=== PATIENT | female | born 1995 | race African-American/Black ===

== ENCOUNTER 2017-11-03 21:59 | Emergency (ER) | payer OTHER ==
[2017-11-03] MEDS ORDERED: KETOROLAC 30 MG/ML INJ ONE (23:05)
--- NOTE | 2017-11-03 23:55 | ER ---
Nurse's Notes [facility] Name: Donnell Marie Age: 22 yrs Sex: Female : 1995 Arrival Date: 11/03/2017 Time: 22:01 Bed 17 Private MD: Diagnosis: Other chest pain-Right Upper;Right Upper Back Pain Presentation: 11/03 22:09 Presenting complaint: Patient states: R shoulder pain that radiates to her chest x 3 aa1 days. Describes pain as tightness. Denies injury. Transition of care: patient was not received from another setting of care. Onset of symptoms was November 01, 2017. Risk Assessment: Do you want to hurt yourself or someone else? Patient reports no desire to harm self or others. Initial Sepsis Screen: Does the patient meet any 2 criteria? No. Patient's initial sepsis screen is negative. Does the patient have a suspected source of infection? No. Patient's initial sepsis screen is negative. Care prior to arrival: None. 22:09 Method Of Arrival: Ambulatory aa1 22:09 Acuity: ENRIQUETA 3 aa1 Triage Assessment: 22:11 General: Appears in no apparent distress. comfortable, Behavior is calm, cooperative, aa1 appropriate for age. STAND UP COMEDIAN: 22:11 LMP N/A - Depo-provera aa1 Historical: - Allergies: 22:11 No Known Allergies; aa1 - Home Meds: 22:11 None [Active]; aa1 - PMHx: 22:11 None; aa1 - PSHx: 22:11 None; aa1 - Immunization history:: Adult Immunizations up to date. - Social history:: Smoking status: Patient/guardian denies using tobacco. - Ebola Screening: : No symptoms or risks identified at this time. Screenin:00 Abuse screen: Denies threats or abuse. Nutritional screening: No deficits noted. jd3 Tuberculosis screening: No symptoms or risk factors identified. Fall Risk Gait- Normal/Bed Rest/Wheelchair (0 pts) Mental Status- Oriented to own ability (0 pts). Total Virk Fall Scale indicates No Risk (0-24 pts). Assessment: 22:58 General: Appears in no apparent distress. uncomfortable, Behavior is calm, cooperative, jd3 appropriate for age. Pain: Complains of pain in right scapular area and anterior aspect of right upper chest Pain does not radiate. Quality of pain is described as aching, Pain began suddenly, Is continuous. Neuro: Level of Consciousness is awake, alert, obeys commands, Oriented to person, place, time, situation. Cardiovascular: Heart tones S1 S2 present Capillary refill < 3 seconds Patient's skin is warm and dry. Respiratory: Airway is patent Respiratory effort is even, unlabored, Respiratory pattern is regular, symmetrical, Breath sounds are clear bilaterally. GI: Abdomen is round Bowel sounds present X 4 quads. Abd is soft and non tender X 4 quads. Patient currently denies nausea, vomiting. : No signs and/or symptoms were reported regarding the genitourinary system. EENT: No signs and/or symptoms were reported regarding the EENT system. Derm: Skin is intact, Skin is dry, Skin is normal, Skin temperature is warm. Musculoskeletal: Circulation, motion, and sensation intact. Range of motion: intact in all extremities. 11/04 00:18 Reassessment: Patient appears in no apparent distress at this time. Patient and/or jd3 family updated on plan of care and expected duration. Pain level reassessed. Patient is alert, oriented x 3, equal unlabored respirations, skin warm/dry/pink. pt reported understanding of discharge instructions, even and steady gait upon discharge. Vital Signs: 11/03 22:11 BP 112 / 77; Pulse 85; Resp 18; Temp 97.3; Pulse Ox 100% on R/A; Weight 86.18 kg (R); aa1 Pain 9/10; ED Course: 22:01 Patient arrived in ED. am2 22:11 Triage completed. aa1 22:11 Arm band placed on right wrist. Patient placed in an exam room, on a stretcher. aa1 22:33 Martín Grissom PA is PHCP. cp 22:33 Christ Ledesma MD is Attending Physician. cp 22:38 Michael Gross RN is Primary Nurse. jd3 23:00 Patient has correct armband on for positive identification. Bed in low position. Call j light in reach. Side rails up X 1. Adult w/ patient. air sampling and monitoring on. Pulse ox on. NIBP on. 23:00 Patient maintains SpO2 saturation greater than 95% on room air. jd3 23:16 Patient moved to radiology via wheelchair. kw 23:16 X-ray completed. Patient tolerated procedure well. kw 23:16 Patient moved back from radiology. kw 23:49 XRAY Chest Pa And Lat (2 Views) In Process Unspecified. EDMS 11/04 00:17 No provider procedures requiring assistance completed. Patient did not have IV access jd3 during this emergency room visit. Administered Medications: 11/03 23:08 Drug: TORadol 60 mg Route: IM; Site: left deltoid; jd3 23:51 Follow up: Response: No adverse reaction; Pain is decreased jd3 Outcome: 23:54 Discharge ordered by MD. [place] 11/04 00:17 Discharged to home ambulatory, with family. jd3 Condition: stable Discharge instructions given to patient, family, Instructed on discharge instructions, follow up and referral plans. medication usage, Demonstrated understanding of instructions, follow-up care, medications, Prescriptions given X 2. 00:19 Patient left the ED. jd3 Signatures: Dispatcher [employer] EDMS Jacinta Jean RN RN aa1 Coleen Sheehan Corey, PA PA Molly Rutherford am2 Michael Gross RN RN jd3
--- NOTE | 2017-11-03 23:55 | EDPHYS ---
Physician Documentation [facility] Name: Donnell Marie Age: 22 yrs Sex: Female : 1995 Arrival Date: 11/03/2017 Time: 22:01 Bed 17 Private MD: ED Physician Christ Ledesma HPI: 11/03 23:00 This 22 yrs old Black Female presents to ER via Ambulatory with complaints of Chest cp Pressure, Shoulder Pain. 23:00 The patient or guardian reports chest pain that is located primarily in the anterior cp chest wall, right upper chest. 23:00 The chest pain is described as a pressure. cp 23:00 The pain does not radiate. Duration: The patient or guardian reports a single episode, cp that is still ongoing. 23:00 Modifying factors: the symptoms are aggravated by movement. cp BOTTOM CAGER: 22:11 LMP N/A - Depo-provera aa1 Historical: - Allergies: 22:11 No Known Allergies; aa1 - Home Meds: 22:11 None [Active]; aa1 - PMHx: 22:11 None; aa1 - PSHx: 22:11 None; aa1 - Immunization history:: Adult Immunizations up to date. - Social history:: Smoking status: Patient/guardian denies using tobacco. - Ebola Screening: : No symptoms or risks identified at this time. ROS: 23:05 Eyes: Negative for injury, pain, redness, and discharge. cp 23:05 Constitutional: Negative for body aches, chills, fever, poor PO intake. 23:05 ENT: Negative for drainage from ear(s), ear pain, sore throat, difficulty swallowing, difficulty handling secretions. 23:05 Cardiovascular: Positive for chest pain, of the right upper chest, Negative for edema, palpitations. 23:05 Respiratory: Negative for cough, dyspnea on exertion, pleurisy, shortness of breath, wheezing. 23:05 Abdomen/GI: Negative for abdominal pain, vomiting, diarrhea, constipation, black/tarry stool, rectal bleeding. 23:05 Back: Positive for pain at rest, of the right trapezius and right scapular area, Negative for injury or acute deformity. 23:05 : Negative for urinary symptoms, flank pain. 23:05 MS/extremity: Negative for injury or acute deformity, decreased range of motion, paresthesias, right shoulder. 23:05 Skin: Negative for cellulitis, rash. 23:05 Neuro: Negative for altered mental status, dizziness, headache, syncope, near syncope, weakness. 23:05 All other systems are negative. Exam: 23:12 Head/Face: Normocephalic, atraumatic. cp 23:12 Constitutional: The patient appears in no acute distress, alert, awake, non-diaphoretic, non-toxic, well developed, well nourished. 23:12 Eyes: Periorbital structures: appear normal, Conjunctiva: normal, no exudate, no injection, Sclera: no appreciated abnormality, Lids and lashes: appear normal, bilaterally. 23:12 ENT: External ear(s): are unremarkable, Nose: is normal, Mouth: Lips: moist, Oral mucosa: pink and intact, moist, Posterior pharynx: is normal, airway is patent, no erythema, no exudate, Voice: is normal. 23:12 Neck: External neck: is normal, ROM/movement: is normal, is supple, without pain, no range of motions limitations, no meningismus, no nuchal rigidity. 23:12 Chest/axilla: Inspection: normal, Palpation: crepitus, is not appreciated, tenderness, that is mild, of the right clavicle and anterior aspect of right upper chest, that partially reproduces the patient's complaints. 23:12 Cardiovascular: Rate: normal, Rhythm: regular, Pulses: Pulses are 2+ in right radial artery and left radial artery. Heart sounds: murmur, not appreciated, Edema: is not appreciated, JVD: is not appreciated. 23:12 Respiratory: the patient does not display signs of respiratory distress, Respirations: normal, no use of accessory muscles, no retractions, no splinting, no tachypnea, labored breathing, is not present, Breath sounds: are clear throughout, no decreased breath sounds, no stridor, no wheezing. 23:12 Abdomen/GI: Inspection: abdomen appears normal, Palpation: abdomen is soft and non-tender, in all quadrants, rebound tenderness, is not appreciated, voluntary guarding, is not appreciated, involuntary guarding, is not appreciated. 23:12 Back: pain, that is mild, of the right trapezius and right scapular area, ROM is normal, muscle spasm, is not present. 23:12 Musculoskeletal/extremity: the right arm Sensation intact. Joints: the right shoulder displays no tenderness palpated lateral shoulder, no ROM restriction noted. 23:12 Skin: cellulitis, is not appreciated, no rash present. Vital Signs: 22:11 BP 112 / 77; Pulse 85; Resp 18; Temp 97.3; Pulse Ox 100% on R/A; Weight 86.18 kg (R); aa1 Pain 02/03; MDM: 22:33 Patient medically screened. cp 23:52 Data reviewed: vital signs, nurses notes, EKG, radiologic studies, plain films. cp 23:52 Test interpretation: by ED physician or midlevel provider: ECG, plain radiologic cp studies. 11/03 23:37 Order name: Urine Dipstick--Ancillary (enter results) [facility] 11/03 23:37 Order name: Urine --Ancillary (enter results) [facility] 11/03 22:33 Order name: EKG; Complete Time: 22:34 cp 11/03 22:33 Order name: EKG - Nurse/Tech; Complete Time: 23:51 cp 11/03 22:56 Order name: XRAY Chest Pa And Lat (2 Views) 11/03 22:43 Order name: Urine Dipstick-Ancillary (obtain specimen); Complete Time: 23:38 cp 11/03 22:43 Order name: Urine Test (obtain specimen); Complete Time: 23:38 cp Administered Medications: 23:08 Drug: TORadol 60 mg Route: IM; Site: left deltoid; jd3 23:51 Follow up: Response: No adverse reaction; Pain is decreased jd3 Disposition: 11/04 06:15 Co-signature as Attending Physician, Christ Ledesma MD. pkl Disposition: 11/03/17 23:54 Discharged to Home. Impression: Other chest pain - Right Upper, Right Upper Back Pain. - Condition is Stable. - Discharge Instructions: Back Pain, Adult, Chest Wall Pain. - Prescriptions for Naprosyn 500 mg Oral Tablet - take 1 tablet by ORAL route 2 times per day take with food; 20 tablet. Cyclobenzaprine 10 mg Oral Tablet - take 1 tablet by ORAL route every 8 hours As needed no driving while taking medication; 20 tablet. - Medication Reconciliation Form, Thank You Letter, Antibiotic Education, Prescription Opioid Use form. - Follow up: Private Physician; When: 2 - 3 days; Reason: Recheck today's complaints. - Problem is new. - Symptoms have improved. Signatures: Dispatcher [employer] EDMS Jacinta Jean RN RN aa1 Christ Ledesma MD MD pkl Martín Grissom PA PA cp Davies, Jonathon, RN RN jd3 Corrections: (The following items were deleted from the chart) 00:19 11/03 23:54 11/03/2017 23:54 Discharged to Home. Impression: Other chest pain - Right jd3 Upper; Right Upper Back Pain. Condition is Stable. Forms are Medication Reconciliation Form, Thank You Letter, Antibiotic Education, Prescription Opioid Use. Follow up: Private Physician; When: 2 - 3 days; Reason: Recheck today's complaints. Problem is new. Symptoms have improved. cp
[2017-11-04 02:27] LABS: Urine Blood TRACE (NEG); Urine Glucose NEGATIVE (NEG); Urine Protein NEGATIVE (NEG)
--- NOTE | 2017-11-04 06:29 | EKG ---
Test Date: 2017-11-03 Test Time: 23:22:32 Navigating Officer: SAMANTHA MEASUREMENT RESULTS: Intervals: Rate: 74 IN: 122 QRSD: 76 QT: 374 QTc: 415 [place]: P: 12 IN: 122 QRS: 39 T: 38 INTERPRETIVE STATEMENTS: Normal sinus rhythm Early repolarization Normal ECG Compared to ECG 01/02/2006 13:35:21 Early repolarization now present Electronically Signed On 11-04-17 06:28:12 CDT by Sharif Castro
--- NOTE | 2017-11-04 08:04 | RAD REPORT ---
EXAM DESCRIPTION: Brenda Menezes (2 Views)11/03/2017 11:49 pm CLINICAL HISTORY: Chest pain COMPARISON: none FINDINGS: The lungs appear clear of acute infiltrate. The heart is normal size IMPRESSION: No acute abnormalities displayed
== END 2017-11-04 00:19 | disposition home or self-care (01) ==
LOC: ER 21:59
DX: M54.89 Other dorsalgia (principal)
CPT/HCPCS: 71046; 81003; 81025; 93005; 96372; 99285

== ENCOUNTER 2018-10-09 11:08 | Emergency (ER) | payer OTHER ==
--- OUTSIDE RECORDS SUMMARY | 2018-10-09 11:17 | XMS REPORT ---
:1995 [facility] [address] [place] [address] Care Team Providers Name Role Phone Unavailable Unavailable Unavailable Problems This patient has no known problems. Allergies, Adverse Reactions, Alerts This patient has no known allergies or adverse reactions. Medications This patient has no known medications.
[2018-10-09 11:43] LABS: Urine Specific Gravity 1.015 (1.005-1.030)
[2018-10-09 11:56] LABS: Urine Bacteria 20-50 /HPF (<20); Urine RBC <5 /HPF (NONE SEEN)
[2018-10-09 11:57] LABS: Urine Culture Reflex Order NOT NEEDED
--- NOTE | 2018-10-09 12:02 | EDPHYS ---
Physician Documentation [facility] Name: Donnell Marie Age: 23 yrs Sex: Female : 1995 Arrival Date: 10/09/2018 Time: 11:13 Bed 10 Private MD: ED Physician Sharif Morales HPI: 10/09 11:52 This 23 yrs old Black Female presents to ER via Ambulatory with complaints of Pain All kb Over. 11:54 Pt reports generalized pain all over since Saturday. Saturday was the worst day, better kb yesterday. Denies any pain at this time. Denies any other symptoms including fever, cough, congestion, urinary symptoms, sore throat. . Onset: The symptoms/episode began/occurred 3 day(s) ago. Severity of symptoms: At their worst the symptoms were moderate in the emergency department the symptoms have resolved. The patient has not experienced similar symptoms in the past. The patient has not recently seen a physician. LINUX DEVELOPER: 11:27 0, Full Term 0, Premature 0, 0, Living 0, LMP N/A - Depo-provera iw Historical: - Allergies: 11:27 No Known Allergies; iw - Home Meds: 11:27 Depo-Provera 150 mg/mL IM susp 1 mL every 3 mo [Active]; iw - PMHx: 11: None; iw - PSHx: 11: None; iw - Immunization history:: Adult Immunizations up to date. - Social history:: Smoking status: Patient/guardian denies using tobacco. - Ebola Screening: : Patient negative for fever greater than or equal to 101.5 degrees Fahrenheit, and additional compatible Ebola Virus Disease symptoms Patient denies exposure to infectious person Patient denies travel to an Ebola-affected area in the 21 days before illness onset No symptoms or risks identified at this time. ROS: 11:53 Eyes: Negative for injury, pain, redness, and discharge, ENT: Negative for injury, kb pain, and discharge, Neck: Negative for injury, pain, and swelling, Cardiovascular: Negative for chest pain, palpitations, and edema, Respiratory: Negative for shortness of breath, cough, wheezing, and pleuritic chest pain, Abdomen/GI: Negative for abdominal pain, nausea, vomiting, diarrhea, and constipation, Back: Negative for injury and pain, : Negative for injury, bleeding, discharge, and swelling, MS/Extremity: Negative for injury and deformity, Skin: Negative for injury, rash, and discoloration, Neuro: Negative for headache, weakness, numbness, tingling, and seizure. 11:53 Constitutional: Positive for body aches, Negative for chills, fatigue, fever, malaise, poor PO intake, weight loss. Exam: 11:53 Constitutional: This is a well developed, well nourished patient who is awake, alert, kb and in no acute distress. Head/Face: Normocephalic, atraumatic. ENT: Nares patent. No nasal discharge, no septal abnormalities noted. Tympanic membranes are normal and external auditory canals are clear. Oropharynx with no redness, swelling, or masses, exudates, or evidence of obstruction, uvula midline. Mucous membranes moist. Neck: Trachea midline, no thyromegaly or masses palpated, and no cervical lymphadenopathy. Supple, full range of motion without nuchal rigidity, or vertebral point tenderness. No Meningismus. Chest/axilla: Normal chest wall appearance and motion. Nontender with no deformity. No lesions are appreciated. Cardiovascular: Regular rate and rhythm with a normal S1 and S2. No gallops, murmurs, or rubs. Normal PMI, no JVD. No pulse deficits. Respiratory: Lungs have equal breath sounds bilaterally, clear to auscultation and percussion. No rales, rhonchi or wheezes noted. No increased work of breathing, no retractions or nasal flaring. Abdomen/GI: Soft, non-tender, with normal bowel sounds. No distension or tympany. No guarding or rebound. No evidence of tenderness throughout. Skin: Warm, dry with normal turgor. Normal color with no rashes, no lesions, and no evidence of cellulitis. MS/ Extremity: Pulses equal, no cyanosis. Neurovascular intact. Full, normal range of motion. Neuro: Awake and alert, GCS 15, oriented to person, place, time, and situation. Cranial nerves II-XII grossly intact. Motor strength 5/5 in all extremities. Sensory grossly intact. Cerebellar exam normal. Normal gait. 12:20 ECG was reviewed by the Attending Physician. kb Vital Signs: 11:27 BP 122 / 76; Pulse 78; Resp 18; Temp 98.6; Pulse Ox 98% ; Weight 89.36 kg; Height 5 ft. iw 4 in. (162.56 cm); Pain 0/10; 11:27 Body Mass Index 33.81 (89.36 kg, 162.56 cm) iw MDM: 11:22 Patient medically screened. kb 11:53 Data reviewed: vital signs, nurses notes. Data interpreted: Pulse oximetry: on room air kb is 98 %. Interpretation: normal. Counseling: I had a detailed discussion with the patient and/or guardian regarding: the historical points, exam findings, and any diagnostic results supporting the discharge/admit diagnosis, lab results, the need for outpatient follow up, a family practitioner, to return to the emergency department if symptoms worsen or persist or if there are any questions or concerns that arise at home. 10/09 11:33 Order name: Urine --Ancillary (enter results); Complete Time: 11:48 kb 10/09 11:33 Order name: Urine Microscopic Only; Complete Time: 11:59 kb 10/09 11:34 Order name: Urine Dipstick--Ancillary (enter results) kb 10/09 12:02 Order name: EKG; Complete Time: 12:03 kb 10/09 12:02 Order name: EKG - Nurse/Tech; Complete Time: 12:19 kb EC:20 Rate is 65 beats/min. Rhythm is regular, Normal Sinus Rhythm. QRS [place] is Normal. [place] kb interval is normal at 122 msec. QRS interval is normal at 76 msec. QT interval is normal at 392 msec. Administered Medications: No medications were administered Disposition: 18:24 Co-signature as Attending Physician, Sharif Morales MD. Disposition: 10/09/18 12:00 Discharged to Home. Impression: Urinary tract infection, site not specified. - Condition is Stable. - Discharge Instructions: Urinary Tract Infection, Adult, [id number]. - Prescriptions for Macrobid 100 mg Oral Capsule - take 1 capsule by ORAL route every 12 hours for 5 days; 10 capsule. - Medication Reconciliation Form, Thank You Letter, Antibiotic Education, Prescription Opioid Use form. - Follow up: Emergency Department; When: As needed; Reason: Worsening of condition. Follow up: Private Physician; When: 2 - 3 days; Reason: Recheck today's complaints, Continuance of care, Re-evaluation by your physician. Signatures: Dispatcher [employer] EDKathryn Darnell, E/M ENGINEER-C E/M ENGINEER-Ckb Ana María Ludwig, NIVIA RN Sharif Lennon MD MD gs Corrections: (The following items were deleted from the chart) 12:24 12:00 10/09/2018 12:00 Discharged to Home. Impression: Urinary tract infection, site iw not specified. Condition is Stable. Forms are Medication Reconciliation Form, Thank You Letter, Antibiotic Education, Prescription Opioid Use. Follow up: Emergency Department; When: As needed; Reason: Worsening of condition. Follow up: Private Physician; When: 2 - 3 days; Reason: Recheck today's complaints, Continuance of care, Re-evaluation by your physician. kb
--- NOTE | 2018-10-09 12:02 | ER ---
Nurse's Notes [facility] Name: Donnell Marie Age: 23 yrs Sex: Female : 1995 Arrival Date: 10/09/2018 Time: 11:13 Bed 10 Private MD: Diagnosis: Urinary tract infection, site not specified Presentation: 10/09 11:26 Presenting complaint: Patient states: pain all over since Saturday. Saturday I couldn't iw get out of bed. It was better last night. Currently has no pain. Transition of care: patient was not received from another setting of care. Onset of symptoms was October 06, 2018. Risk Assessment: Do you want to hurt yourself or someone else? Patient reports no desire to harm self or others. Initial Sepsis Screen: Does the patient meet any 2 criteria? No. Patient's initial sepsis screen is negative. Does the patient have a suspected source of infection? No. Patient's initial sepsis screen is negative. Care prior to arrival: None. 11:26 Method Of Arrival: Ambulatory iw 11:26 Acuity: ENRIQUETA 4 iw Triage Assessment: 11:27 General: Appears in no apparent distress. Behavior is calm, cooperative. iw 11:29 Pain: Denies pain. iw NURSE RESEARCHER: 11:27 0, Full Term 0, Premature 0, 0, Living 0, LMP N/A - Depo-provera iw Historical: - Allergies: 11:27 No Known Allergies; iw - Home Meds: 11:27 Depo-Provera 150 mg/mL IM susp 1 mL every 3 mo [Active]; iw - PMHx: 11:27 None; iw - PSHx: 11:27 None; iw - Immunization history:: Adult Immunizations up to date. - Social history:: Smoking status: Patient/guardian denies using tobacco. - Ebola Screening: : Patient negative for fever greater than or equal to 101.5 degrees Fahrenheit, and additional compatible Ebola Virus Disease symptoms Patient denies exposure to infectious person Patient denies travel to an Ebola-affected area in the 21 days before illness onset No symptoms or risks identified at this time. Screenin:23 Abuse screen: Denies threats or abuse. Denies injuries from another. Nutritional iw screening: No deficits noted. Tuberculosis screening: No symptoms or risk factors identified. Fall Risk None identified. Assessment: 12:00 General: Appears in no apparent distress. Behavior is calm, cooperative. Pain:. Neuro: iw Level of Consciousness is awake, alert, obeys commands, Oriented to person, place, time, situation, Moves all extremities. Full function. Cardiovascular: Patient's skin is warm and dry. Respiratory: Respiratory effort is even, unlabored, Respiratory pattern is regular. GI: No signs and/or symptoms were reported involving the gastrointestinal system. Derm: Skin is intact, is healthy with good turgor. Musculoskeletal: Range of motion: intact in all extremities. Vital Signs: 11:27 BP 122 / 76; Pulse 78; Resp 18; Temp 98.6; Pulse Ox 98% ; Weight 89.36 kg; Height 5 ft. iw 4 in. (162.56 cm); Pain 0/10; 11:27 Body Mass Index 33.81 (89.36 kg, 162.56 cm) iw ED Course: 11:13 Patient arrived in ED. mr 11:22 Kathryn Thomas FNP-C is [facility]. kb 11:22 Sharif Morales MD is Attending Physician. kb 11:27 Triage completed. iw 11:29 Arm band placed on left wrist. iw 11:33 Ana María Ludwig, NIVIA is Primary Nurse. iw 12:00 Patient has correct armband on for positive identification. iw 12:11 EKG done, by cryptologic technician technical. reviewed by Kathryn GARCIA. tc 12:23 No provider procedures requiring assistance completed. Patient did not have IV access iw during this emergency room visit. Administered Medications: No medications were administered Outcome: 12:00 Discharge ordered by MD. kb 12:23 Discharged to home ambulatory. iw 12:23 Condition: good 12:23 Discharge instructions given to patient, Instructed on discharge instructions, follow up and referral plans. Demonstrated understanding of instructions, follow-up care. 12:24 Patient left the ED. iw Signatures: Kathryn Thomas FNP-C FNP-[place] mr Ana María Ludwig, RN RN Iris Hurtado, commercial leasing agent EKG Ttc Corrections: (The following items were deleted from the chart) 11:29 11:26 Presenting complaint: Patient states: pain all over since Saturday. Saturday I iw couldn't get out of bed. It was better last night, but this morning started hurting again iw
--- NOTE | 2018-10-09 12:44 | EKG ---
Test Date: 2018-10-09 Test Time: 12:16:05 [place] Examiner: CARLOS MEASUREMENT RESULTS: Intervals: Rate: 65 ND: 122 QRSD: 76 QT: 392 QTc: 407 [place]: P: 24 ND: 122 QRS: 43 T: 50 INTERPRETIVE STATEMENTS: Normal sinus rhythm Early repolarization Normal ECG Compared to ECG 11/03/2017 23:22:32 No significant changes Electronically Signed On 10-09-18 12:43:50 CDT by Franck Boggs
[2018-10-09 13:46] LABS: Urine Blood 1+ (NEG); Urine Glucose NEGATIVE (NEG); Urine Protein NEGATIVE (NEG); Urine Specific Gravity 1.015 (1.005-1.030); Urine pH 5.5 (5.0-7.0)
== END 2018-10-09 12:24 | disposition home or self-care (01) ==
LOC: ER 11:08
DX: N39.0 Urinary tract infection, site not specified (principal)
CPT/HCPCS: 81003; 81015; 81025; 93005; 99283

== ENCOUNTER 2020-12-05 22:33 | Emergency (ER) | payer OTHER ==
--- OUTSIDE RECORDS SUMMARY | 2020-12-05 22:36 | XMS REPORT | Continuity of Care Document ---
:1995 Author Organization [facility] t Address [address] [place] [address] Care Team Providers Name Role Phone Nurse, Women's Health Attending Clinician Unavailable Doctor Unassigned, Name Attending Clinician Unavailable Buzz SANTANA Attending Clinician Problems This patient has no known problems. Allergies, Adverse Reactions, Alerts This patient has no known allergies or adverse reactions. Medications This patient has no known medications. Procedures This patient has no known procedures. Encounters Start End Encounter Admission Attending Care Care Encounter Source Date/Time Date/Time Type Type Clinicians Facility Department ID 2020-09-15 2020-09-15 Nurse Nurse, [facility] [id number] 13:56:24 14:34:04 Visit [facility] [id number] [place] [id number] [place] [phone] [address] 2020-09-15 2020-09-15 Orders Doctor TETO [id number] 00:00:00 00:00:00 Only Unassigned, JOSE D [id number] [place] [facility] [id number] 2020-05-25 2020-05-25 Nurse Nurse, [facility] [id number] 14:03:52 14:18:52 Visit [facility] [id number] [place] [id number] [place] [phone] [address] 2020-02-18 2020-02-18 Office TSERING Gerber [id number] 14:45:48 15:53:03 Visit Nicol Laguerre [id number] [place] [id number] [place] [phone] [facility] [address] [facility] Results This patient has no known results.
[2020-12-06] MEDS ORDERED: ONDANSETRON 4 MG (ODT) TAB ONE (00:35)
--- NOTE | 2020-12-06 01:12 | ER ---
Nurse's Notes [facility] Name: Donnell Marie Age: 25 yrs Sex: Female : 1995 Arrival Date: 12/05/2020 Time: 22:37 Bed External Waiting Private MD: Diagnosis: Presentation: 12/06 00:10 Chief complaint: Patient states: N/V/D since last night, reports abdominal pain. em Coronavirus screen: Client denies travel out of the [place] in the last 14 days. Ebola Screen: Patient negative for fever greater than or equal to 101.5 degrees Fahrenheit, and additional compatible Ebola Virus Disease symptoms Patient denies exposure to infectious person. Patient denies travel to an Ebola-affected area in the 21 days before illness onset. No symptoms or risks identified at this time. Initial Sepsis Screen: Does the patient meet any 2 criteria? HR > 90 bpm. No. Patient's initial sepsis screen is negative. Does the patient have a suspected source of infection? No. Patient's initial sepsis screen is negative. Risk Assessment: Do you want to hurt yourself or someone else? Patient reports no desire to harm self or others. Onset of symptoms was December 06, 2020. 00:10 Method Of Arrival: Ambulatory em 00:10 Acuity: ENRIQUETA 2 em Historical: - Allergies: 00:11 No Known Allergies; em - PMHx: 00:11 None; em - PSHx: 00:11 None; em - Immunization history:: Adult Immunizations up to date. - Social history:: Smoking status: Patient denies any tobacco usage or history of. Vital Signs: 00:10 BP 90 / 58; Pulse 120; Resp 18; Temp 98.4; Pulse Ox 99% on R/A; Weight 96.16 kg; Pain em 310; 00:14 BP 112 / 77; em ED Course: 12/05 22:37 Patient arrived in ED. 12/06 00:11 Triage completed. em 00:11 Arm band placed on. em Administered Medications: No medications were administered Outcome: 01:11 Patient left the ED. em Signatures: Isaias Gates RN RN Lacie Coronel
[2020-12-06 01:58] VITALS: TEMP 98.4; O2SAT 99
[2020-12-06 01:59] VITALS: BP 112/77
== END 2020-12-06 01:11 | disposition left against medical advice (07) ==
LOC: ER 22:33
DX: Z53.21 Procedure and treatment not carried out due to patient leaving prior to being seen by health care provider (principal)
CPT/HCPCS: 99281

== ENCOUNTER 2023-10-02 21:51 | Emergency (ER) | payer OTHER ==
--- OUTSIDE RECORDS SUMMARY | 2023-10-02 21:55 | XMS REPORT | Continuity of Care Document ---
Author Name Unknown Address [address] [place] [address] [facility] Address [address] [place] [address] Care Team Providers Care Jelly Maker Name Role Phone NEYMAR MCCORMACK Primary Care Physician Unavailab MADDY Jordan Attending Clinician MADDY Mathias Attending Clinician RENE Chavarria Attending Clinician Unavailable NEYMAR MCCORMACK Attending Clinician Unavailable Neymar Diaz Attending Clinician [phone] Doctor Unassigned, [place] [facility] Attending Clinician U lien Morris, [facility] Attending Clinician Unavailable ALMA SOLIMAN Attending Clinician Unavailab ALAM Sweeney Attending Clinician Unavailab NICOL Carvalho Attending Clinician Unavailable Nicol Jordan PA-C Attending Clinician [phone] REEMA LEAL Attending Clinician Unavailable Reema Leal MD Attending Clinician [phone] EDGAR SARAVIA Attending Clinician Unavailable Edgar Saravia NP Attending Clinician [phone] Nurse, [facility] Attending Clinician Un available Jasvir PAC, K Joy Attending Clinician SANDRO COTE Attending Clinician Unavail able JUAN MANUEL LAMA Attending Clinician Unavailable Juan Manuel Lama MD Attending Clinician VALERIE MCHUGH Attending Clinician Unavailable FELIPE BLANTON Attending Clinician Unavailable ABBY MONTAGUE Attending Clinician Unavailable Payers Payer Name Policy Type Policy Number Effective Date Expirati on Date Source [facility] DUAL COMP HMO D SNP [id number] 2020 00:00:00 [facility] [place] [id number] 2016 00:00:00 [employer] TOTAL CARE MEDICARE HMO [id number] 2023 00:00:00 [place] [id number] 2016 00:00:00 2019 00:00:00 Problems Condition Name Condition Details Condition Category Status Onset Date Resolution Date Last Treatment Date Treating Clinician Comments Source Nexplanon in place Nexplanon in place Disease Active 4-14 00:00: 00 [facility] Obesity (BMI 30-39.9) Obesity (BMI 30-39.9) Disease Active 8-13 00:00: 00 [facility] History of anemia History of anemia Disease Active 6 00:00: 00 [facility] Atypical squamous cells of undetermin ed significan ce (ASCUS) on Papanicola ou smear of cervix Atypical squamous cells of undetermin ed significan ce (ASCUS) on Papanicola ou smear of cervix Disease Active 1- 00:00: 00 Overview: Formattin g of this note might be different from the original. Repeat cytology in 1 year [facility] Allergies, Adverse Reactions, Alerts Allergy Name Allergy Type Status Severity Reaction(s) Onset Date Inactive Date Treating Clinician Comments Source NO KNOWN ALLERGIE S Drug Class Active [facility] Social History Social Habit Start Date Stop Date Quantity Comments [facility] 2023-04-15 00:00:00 2023-04-15 00:00:00 [facility] Exposure to SARS-CoV-2 (event) 2022-10-13 00:00:00 2022-10-23 09:51:00 Not sure [facility] Alcohol intake 2022-10-23 00:00:00 2022-10-23 00:00:00 0 /d [facility] Tobacco use and exposure 2022-09-12 00:00:00 2022-09-12 00:00:00 Smokeless tobacco non-user [facility] Sex Assigned At 1995 00:00:00 1995 00:00:00 [facility] Smoking Status Start Date Stop Date Source Never smoked tobacco [facility] Medications Ordered Medication Name Filled Medication Name Start Date Stop Date Current Medication? Ordering Clinician Indication Dosage Frequency Signature (SIG) Comments Components Source clotrimazol e 1 % topical cream 2022-05 00:00: 00 04-15 00:00 :00 No [id number] Apply to area(s) at bedtime. [facility] ergocalcife rol, vitamin d2, 1,250 mcg (50,000 unit) capsule 09-15 00:00: 00 Yes [id number] Take 1 capsule by mouth weekly. [facility] etonogestre L (NEXPLANON) implant 68 mg 09-07 19:45: 00 09-07 18:40 :00 No [id number] 68mg [facility] nystatin-tr iamcinolone cream 02-20 00:00: 00 09-14 00:00 :00 No [id number] Apply to area(s) 2 (two) times daily. [facility] polyethylen e glycol 3350 17 gram/dose powder 02-20 00:00: 00 09-14 00:00 :00 No [id number] 17g Take 17 g by mouth daily. [facility] ondansetron (ZOFRAN ODT) 4 mg disintegrat ing tablet 7-13 00:00: 00 09-14 00:00 :00 No [id number] 4mg Take 1 tablet by mouth every 8 (eight) hours as needed for Nausea and Vomiting (N/V). [facility] Immunizations Ordered Immunization Name Filled Immunization Name Date Status Comments Source Influenza Virus Vaccine Quad IM, Preserv and ABX Free 6 MO-64 YRS 2022-09-12 00:00:00 Completed [facility] Influenza Virus Vaccine Quad IM, Preserv and ABX Free 6 MO-64 YRS 2022-09-12 00:00:00 Completed [facility] Influenza Virus Vaccine Quad IM, Preserv and ABX Free 6 MO-64 YRS 2022-09-12 00:00:00 Completed [facility] Influenza Virus Vaccine Quad IM, Preserv and ABX Free 6 MO-64 YRS 2022-09-12 00:00:00 Completed [facility] Influenza Virus Vaccine Quad IM, Preserv and ABX Free 6 MO-64 YRS 2022-09-12 00:00:00 Completed [facility] Influenza Virus Vaccine Quad IM, Preserv and ABX Free 6 MO-64 YRS 2022-09-12 00:00:00 Completed [facility] Influenza Virus Vaccine Quad IM, Preserv and ABX Free 6 MO-64 YRS 2022-09-12 00:00:00 Completed [facility] Influenza Virus Vaccine Quad IM, Preserv and ABX Free 6 MO-64 YRS 2022-09-12 00:00:00 Completed [facility] Influenza Virus Vaccine Quad IM, Preserv and ABX Free 6 MO-64 YRS 2022-09-12 00:00:00 Completed [facility] Influenza Virus Vaccine Quad IM, Preserv and ABX Free 6 MO-64 YRS 2022-09-12 00:00:00 Completed [facility] Influenza Virus Vaccine Quad IM, Preserv and ABX Free 6 MO-64 YRS 2022-09-12 00:00:00 Completed [facility] Influenza Virus Vaccine Quad IM, Preserv and ABX Free 6 MO-64 YRS 2021-03-08 00:00:00 Completed [facility] Influenza Virus Vaccine Quad IM, Preserv and ABX Free 6 MO-64 YRS 2021-03-08 00:00:00 Completed [facility] Influenza Virus Vaccine Quad IM, Preserv and ABX Free 6 MO-64 YRS 2021-03-08 00:00:00 Completed [facility] Influenza Virus Vaccine Quad IM, Preserv and ABX Free 6 MO-64 YRS 2021-03-08 00:00:00 Completed [facility] Influenza Virus Vaccine Quad IM, Preserv and ABX Free 6 MO-64 YRS 2021-03-08 00:00:00 Completed [facility] Influenza Virus Vaccine Quad IM, Preserv and ABX Free 6 MO-64 YRS 2021-03-08 00:00:00 Completed [facility] Influenza Virus Vaccine Quad IM, Preserv and ABX Free 6 MO-64 YRS 2021-03-08 00:00:00 Completed [facility] Influenza Virus Vaccine Quad IM, Preserv and ABX Free 6 MO-64 YRS 2021-03-08 00:00:00 Completed [facility] Influenza Virus Vaccine Quad IM, Preserv and ABX Free 6 MO-64 YRS 2021-03-08 00:00:00 Completed [facility] Influenza Virus Vaccine Quad IM, Preserv and ABX Free 6 MO-64 YRS 2021-03-08 00:00:00 Completed [facility] Influenza Virus Vaccine Quad IM, Preserv and ABX Free 6 MO-64 YRS 2021-03-08 00:00:00 Completed [facility] Influenza Virus Vaccine Quad IM, Preserv and ABX Free 6 MO-64 YRS 2021-03-08 00:00:00 Completed [facility] Influenza Virus Vaccine Quad IM, Preserv and ABX Free 6 MO-64 YRS 2021-03-08 00:00:00 Completed [facility] Influenza Virus Vaccine Quad IM, Preserv and ABX Free 6 MO-64 YRS 2021-03-08 00:00:00 Completed [facility] Influenza Virus Vaccine Quad IM, Preserv and ABX Free 6 MO-64 YRS 2021-03-08 00:00:00 Completed [facility] SARS-COV-2 COVID-19 PFIZER VACCINE 2020-10-05 00:00:00 Completed [facility] SARS-COV-2 COVID-19 PFIZER VACCINE 2020-10-05 00:00:00 Completed [facility] SARS-COV-2 COVID-19 PFIZER VACCINE 2020-10-05 00:00:00 Completed [facility] SARS-COV-2 COVID-19 PFIZER VACCINE 2020-10-05 00:00:00 Completed [facility] SARS-COV-2 COVID-19 PFIZER VACCINE 2020-10-05 00:00:00 Completed [facility] SARS-COV-2 COVID-19 PFIZER VACCINE 2020-10-05 00:00:00 Completed [facility] SARS-COV-2 COVID-19 PFIZER VACCINE 2020-10-05 00:00:00 Completed [facility] SARS-COV-2 COVID-19 PFIZER VACCINE 2020-10-05 00:00:00 Completed [facility] SARS-COV-2 COVID-19 PFIZER VACCINE 2020-10-05 00:00:00 Completed [facility] SARS-COV-2 COVID-19 PFIZER VACCINE 2020-10-05 00:00:00 Completed [facility] SARS-COV-2 COVID-19 PFIZER VACCINE 2020-10-05 00:00:00 Completed [facility] SARS-COV-2 COVID-19 PFIZER VACCINE 2020-10-05 00:00:00 Completed [facility] SARS-COV-2 COVID-19 PFIZER VACCINE 2020-10-05 00:00:00 Completed [facility] SARS-COV-2 COVID-19 PFIZER VACCINE 2020-10-05 00:00:00 Completed [facility] SARS-COV-2 COVID-19 PFIZER VACCINE 2020-10-05 00:00:00 Completed [facility] SARS-COV-2 COVID-19 PFIZER VACCINE 2020-09-15 00:00:00 Completed [facility] SARS-COV-2 COVID-19 PFIZER VACCINE 2020-09-15 00:00:00 Completed [facility] SARS-COV-2 COVID-19 PFIZER VACCINE 2020-09-15 00:00:00 Completed [facility] SARS-COV-2 COVID-19 PFIZER VACCINE 2020-09-15 00:00:00 Completed [facility] SARS-COV-2 COVID-19 PFIZER VACCINE 2020-09-15 00:00:00 Completed [facility] SARS-COV-2 COVID-19 PFIZER VACCINE 2020-09-15 00:00:00 Completed [facility] SARS-COV-2 COVID-19 PFIZER VACCINE 2020-09-15 00:00:00 Completed [facility] SARS-COV-2 COVID-19 PFIZER VACCINE 2020-09-15 00:00:00 Completed [facility] SARS-COV-2 COVID-19 PFIZER VACCINE 2020-09-15 00:00:00 Completed [facility] SARS-COV-2 COVID-19 PFIZER VACCINE 2020-09-15 00:00:00 Completed [facility] SARS-COV-2 COVID-19 PFIZER VACCINE 2020-09-15 00:00:00 Completed [facility] SARS-COV-2 COVID-19 PFIZER VACCINE 2020-09-15 00:00:00 Completed [facility] SARS-COV-2 COVID-19 PFIZER VACCINE 2020-09-15 00:00:00 Completed [facility] SARS-COV-2 COVID-19 PFIZER VACCINE 2020-09-15 00:00:00 Completed [facility] SARS-COV-2 COVID-19 PFIZER VACCINE 2020-09-15 00:00:00 Completed [facility] Influenza Virus Vaccine Quad .5 mL IM 6+ MO 2020-02-18 00:00:00 Completed [facility] Influenza Virus Vaccine Quad .5 mL IM 6+ MO 2020-02-18 00:00:00 Completed [facility] Influenza Virus Vaccine Quad .5 mL IM 6+ MO 2020-02-18 00:00:00 Completed [facility] Influenza Virus Vaccine Quad .5 mL IM 6+ MO 2020-02-18 00:00:00 Completed [facility] Influenza Virus Vaccine Quad .5 mL IM 6+ MO 2020-02-18 00:00:00 Completed [facility] Influenza Virus Vaccine Quad .5 mL IM 6+ MO 2020-02-18 00:00:00 Completed [facility] Influenza Virus Vaccine Quad .5 mL IM 6+ MO 2020-02-18 00:00:00 Completed [facility] Influenza Virus Vaccine Quad .5 mL IM 6+ MO 2020-02-18 00:00:00 Completed [facility] Influenza Virus Vaccine Quad .5 mL IM 6+ MO 2020-02-18 00:00:00 Completed [facility] Influenza Virus Vaccine Quad .5 mL IM 6+ MO 2020-02-18 00:00:00 Completed [facility] Influenza Virus Vaccine Quad .5 mL IM 6+ MO 2020-02-18 00:00:00 Completed [facility] Influenza Virus Vaccine Quad .5 mL IM 6+ MO 2020-02-18 00:00:00 Completed [facility] Influenza Virus Vaccine Quad .5 mL IM 6+ MO 2020-02-18 00:00:00 Completed [facility] Influenza Virus Vaccine Quad .5 mL IM 6+ MO 2020-02-18 00:00:00 Completed [facility] Influenza Virus Vaccine Quad .5 mL IM 6+ MO 2020-02-18 00:00:00 Completed [facility] Influenza Virus Vaccine Quad IM 3+ YRS 2017-04-17 00:00:00 Completed [facility] Influenza Virus Vaccine Quad IM 3+ YRS 2017-04-17 00:00:00 Completed [facility] Influenza Virus Vaccine Quad IM 3+ YRS 2017-04-17 00:00:00 Completed [facility] Influenza Virus Vaccine Quad IM 3+ YRS 2017-04-17 00:00:00 Completed [facility] Influenza Virus Vaccine Quad IM 3+ YRS 2017-04-17 00:00:00 Completed [facility] Influenza Virus Vaccine Quad IM 3+ YRS 2017-04-17 00:00:00 Completed [facility] Influenza Virus Vaccine Quad IM 3+ YRS 2017-04-17 00:00:00 Completed [facility] Influenza Virus Vaccine Quad IM 3+ YRS 2017-04-17 00:00:00 Completed [facility] Influenza Virus Vaccine Quad IM 3+ YRS 2017-04-17 00:00:00 Completed [facility] Influenza Virus Vaccine Quad IM 3+ YRS 2017-04-17 00:00:00 Completed [facility] Influenza Virus Vaccine Quad IM 3+ YRS 2017-04-17 00:00:00 Completed [facility] Influenza Virus Vaccine Quad IM 3+ YRS 2017-04-17 00:00:00 Completed [facility] Influenza Virus Vaccine Quad IM 3+ YRS 2017-04-17 00:00:00 Completed [facility] Influenza Virus Vaccine Quad IM 3+ YRS 2017-04-17 00:00:00 Completed [facility] Influenza Virus Vaccine Quad IM 3+ YRS 2017-04-17 00:00:00 Completed [facility] TDAP 2016-08-31 00:00:00 Completed [facility] TDAP 2016-08-31 00:00:00 Completed [facility] TDAP 2016-08-31 00:00:00 Completed [facility] TDAP 2016-08-31 00:00:00 Completed [facility] TDAP 2016-08-31 00:00:00 Completed [facility] TDAP 2016-08-31 00:00:00 Completed [facility] TDAP 2016-08-31 00:00:00 Completed [facility] TDAP 2016-08-31 00:00:00 Completed [facility] TDAP 2016-08-31 00:00:00 Completed [facility] TDAP 2016-08-31 00:00:00 Completed [facility] TDAP 2016-08-31 00:00:00 Completed [facility] TDAP 2016-08-31 00:00:00 Completed [facility] TDAP 2016-08-31 00:00:00 Completed [facility] TDAP 2016-08-31 00:00:00 Completed [facility] TDAP 2016-08-31 00:00:00 Completed [facility] Influenza Virus Vaccine Quad IM 3+ YRS 2016-03-29 00:00:00 Completed [facility] Influenza Virus Vaccine Quad IM 3+ YRS 2016-03-29 00:00:00 Completed [facility] Influenza Virus Vaccine Quad IM 3+ YRS 2016-03-29 00:00:00 Completed [facility] Influenza Virus Vaccine Quad IM 3+ 2016-03-29 00:00:00 Completed [facility] Influenza Virus Vaccine Quad IM 3+ YRS 2016-03-29 00:00:00 Completed [facility] Influenza Virus Vaccine Quad IM 3+ YRS 2016-03-29 00:00:00 Completed [facility] Influenza Virus Vaccine Quad IM 3+ YRS 2016-03-29 00:00:00 Completed [facility] Influenza Virus Vaccine Quad IM 3+ YRS 2016-03-29 00:00:00 Completed [facility] Influenza Virus Vaccine Quad IM 3+ YRS 2016-03-29 00:00:00 Completed [facility] Influenza Virus Vaccine Quad IM 3+ YRS 2016-03-29 00:00:00 Completed [facility] Influenza Virus Vaccine Quad IM 3+ YRS 2016-03-29 00:00:00 Completed [facility] Influenza Virus Vaccine Quad IM 3+ YRS 2016-03-29 00:00:00 Completed [facility] Influenza Virus Vaccine Quad IM 3+ YRS 2016-03-29 00:00:00 Completed [facility] Influenza Virus Vaccine Quad IM 3+ YRS 2016-03-29 00:00:00 Completed [facility] Influenza Virus Vaccine Quad IM 3+ YRS 2016-03-29 00:00:00 Completed [facility] HEPATITIS A 2005-12-13 00:00:00 Completed [facility] Meningococcal Vaccine 2005-12-13 00:00:00 Completed [facility] TDAP 2005-12-13 00:00:00 Completed [facility] HEPATITIS A 2005-12-13 00:00:00 Completed [facility] Meningococcal Vaccine 2005-12-13 00:00:00 Completed [facility] TDAP 2005-12-13 00:00:00 Completed [facility] HEPATITIS A 2005-12-13 00:00:00 Completed [facility] Meningococcal Vaccine 2005-12-13 00:00:00 Completed [facility] TDAP 2005-12-13 00:00:00 Completed [facility] Influenza Virus Vaccine Quad IM 3+ YRS Unknown Completed [facility] TDAP Unknown Completed [facility] Influenza Virus Vaccine Quad IM 3+ YRS Unknown Completed [facility] Influenza Virus Vaccine Quad .5 mL IM 6+ MO (FLUZONE/FLULAVAL/F LUARIX) Unknown Completed [facility] SARS-COV-2 COVID-19 PFIZER VACCINE Unknown Completed [facility] SARS-COV-2 COVID-19 PFIZER VACCINE Unknown Completed [facility] Influenza Virus Vaccine Quad IM, Preserv and ABX Free 6 MO-64 YRS (FLUCELVAX) Unknown Completed [facility] Influenza Virus Vaccine Quad IM, Preserv and ABX Free 6 MO-64 YRS (FLUCELVAX) Unknown Completed [facility] SARS-COV-2 COVID 19 DAVID SUCROSE VACCINE 12+, [id number], 0.3 ML (30 MCG), IM PFIZER (CRAFT TOP) Unknown Completed [facility] Influenza Virus Vaccine Quad IM 3+ YRS Unknown Completed [facility] TDAP Unknown Completed [facility] Influenza Virus Vaccine Quad IM 3+ YRS Unknown Completed [facility] Influenza Virus Vaccine Quad .5 mL IM 6+ MO (FLUZONE/FLULAVAL/F LUARIX) Unknown Completed [facility] SARS-COV-2 COVID-19 PFIZER VACCINE Unknown Completed [facility] SARS-COV-2 COVID-19 PFIZER VACCINE Unknown Completed [facility] Influenza Virus Vaccine Quad IM, Preserv and ABX Free 6 MO-64 YRS (FLUCELVAX) Unknown Completed [facility] Influenza Virus Vaccine Quad IM, Preserv and ABX Free 6 MO-64 YRS (FLUCELVAX) Unknown Completed [facility] SARS-COV-2 COVID 19 DAVID SUCROSE VACCINE 12+, [id number], 0.3 ML (30 MCG), IM PFIZER (CRAFT TOP) Unknown Completed [facility] Influenza Virus Vaccine Quad IM 3+ YRS Unknown Completed [facility] TDAP Unknown Completed [facility] Influenza Virus Vaccine Quad IM 3+ YRS Unknown Completed [facility] Influenza Virus Vaccine Quad .5 mL IM 6+ MO (FLUZONE/FLULAVAL/F LUARIX) Unknown Completed [facility] SARS-COV-2 COVID-19 PFIZER VACCINE Unknown Completed [facility] SARS-COV-2 COVID-19 PFIZER VACCINE Unknown Completed [facility] Influenza Virus Vaccine Quad IM, Preserv and ABX Free 6 MO-64 YRS (FLUCELVAX) Unknown Completed [facility] Influenza Virus Vaccine Quad IM, Preserv and ABX Free 6 MO-64 YRS (FLUCELVAX) Unknown Completed [facility] Influenza Virus Vaccine Quad IM 3+ YRS Unknown Completed [facility] TDAP Unknown Completed [facility] Influenza Virus Vaccine Quad IM 3+ YRS Unknown Completed [facility] Influenza Virus Vaccine Quad .5 mL IM 6+ MO (FLUZONE/FLULAVAL/F LUARIX) Unknown Completed [facility] SARS-COV-2 COVID-19 PFIZER VACCINE Unknown Completed [facility] SARS-COV-2 COVID-19 PFIZER VACCINE Unknown Completed [facility] Influenza Virus Vaccine Quad IM, Preserv and ABX Free 6 MO-64 YRS (FLUCELVAX) Unknown Completed [facility] Influenza Virus Vaccine Quad IM, Preserv and ABX Free 6 MO-64 YRS (FLUCELVAX) Unknown Completed [facility] Influenza Virus Vaccine Quad IM 3+ YRS Unknown Completed [facility] TDAP Unknown Completed [facility] Influenza Virus Vaccine Quad IM 3+ YRS Unknown Completed [facility] Influenza Virus Vaccine Quad .5 mL IM 6+ MO (FLUZONE/FLULAVAL/F LUARIX) Unknown Completed [facility] SARS-COV-2 COVID-19 PFIZER VACCINE Unknown Completed [facility] SARS-COV-2 COVID-19 PFIZER VACCINE Unknown Completed [facility] Influenza Virus Vaccine Quad IM, Preserv and ABX Free 6 MO-64 YRS (FLUCELVAX) Unknown Completed [facility] Influenza Virus Vaccine Quad IM, Preserv and ABX Free 6 MO-64 YRS (FLUCELVAX) Unknown Completed [facility] Influenza Virus Vaccine Quad IM 3+ YRS Unknown Completed [facility] TDAP Unknown Completed [facility] Influenza Virus Vaccine Quad IM 3+ YRS Unknown Completed [facility] Influenza Virus Vaccine Quad .5 mL IM 6+ MO (FLUZONE/FLULAVAL/F LUARIX) Unknown Completed [facility] SARS-COV-2 COVID-19 PFIZER VACCINE Unknown Completed [facility] SARS-COV-2 COVID-19 PFIZER VACCINE Unknown Completed [facility] Influenza Virus Vaccine Quad IM, Preserv and ABX Free 6 MO-64 YRS (FLUCELVAX) Unknown Completed [facility] Influenza Virus Vaccine Quad IM, Preserv and ABX Free 6 MO-64 YRS (FLUCELVAX) Unknown Completed [facility] Vital Signs Vital Name Observation Time Observation Value Comments S ouredith Systolic blood pressure 2023-04-15 17:20:00 106 mm[Hg] [facility] Diastolic blood pressure 2023-04-15 17:20:00 75 mm[Hg] [facility] Heart rate 2023-04-15 17:20:00 73 /min [facility] Respiratory rate 2023-04-15 17:20:00 18 /min [facility] Body height 2023-04-15 17:20:00 167.6 cm [facility] 2023-04-15 17:20:00 97.523 kg [facility] BMI 2023-04-15 17:20:00 34.70 kg/m2 Univ [facility] Oxygen saturation in Arterial blood by Pulse oximetry 2023-04-15 17:20:00 100 /min [facility] Systolic blood pressure 2022-10-23 15:08:00 109 mm[Hg] [facility] Diastolic blood pressure 2022-10-23 15:08:00 74 mm[Hg] [facility] Heart rate 2022-10-23 15:08:00 84 /min Unive [facility] Body temperature 2022-10-23 15:08:00 36.83 Gilda [facility] Body height 2022-10-23 15:08:00 168.3 cm Univ [facility] Body weight 2022-10-23 15:08:00 93.985 kg [facility] BMI 2022-10-23 15:08:00 33.19 kg/m2 [facility] Systolic blood pressure 2022-09-14 15:54:00 116 mm[Hg] [facility] Diastolic blood pressure 2022-09-14 15:54:00 76 mm[Hg] [facility] Heart rate 2022-09-14 15:54:00 72 /min Un[facility] Body temperature 2022-09-14 15:54:00 36.39 Gilda [facility] Respiratory rate 2022-09-14 15:54:00 18 /min [facility] Body height 2022-09-14 15:54:00 168.3 cm [facility] Body weight 2022-09-14 15:54:00 97.07 kg Univ [facility] BMI 2022-09-14 15:54:00 34.28 kg/m2 [facility] Oxygen saturation in Arterial blood by Pulse oximetry 2022-09-14 15:54:00 99 /min [facility] Systolic blood pressure 2022-09-12 15:22:00 108 mm[Hg] [facility] Diastolic blood pressure 2022-09-12 15:22:00 73 mm[Hg] [facility] Heart rate 2022-09-12 15:22:00 73 /min [facility] Body temperature 2022-09-12 15:22:00 36.83 Gilda [facility] Respiratory rate 2022-09-12 15:22:00 18 /min [facility] Body height 2022-09-12 15:22:00 172.7 cm [facility] Body weight 2022-09-12 15:22:00 97.07 kg [facility] BMI 2022-09-12 15:22:00 32.54 kg/m2 [facility] Systolic blood pressure 2021-09-07 18:18:00 108 mm[Hg] [facility] Diastolic blood pressure 2021-09-07 18:18:00 75 mm[Hg] [facility] Heart rate 2021-09-07 18:18:00 75 /min [facility] Body temperature 2021-09-07 18:18:00 37.33 Gilda [facility] Body height 2021-09-07 18:18:00 175.3 cm [facility] Body weight 2021-09-07 18:18:00 100.789 kg [facility] BMI 2021-09-07 18:18:00 32.81 kg/m2 [facility] Procedures Procedure Date / Time Performed Performing Clinician Source SARS-COV-2 COVID 19 DAVID SUCROSE VACCINE 12+, , 0.3 ML (30 MCG), IM PFIZER (CRAFT TOP) 2023-04-15 17:53:18 Neymar Mccormack [facility] DISCLOSURE AND CONSENT, MEDICAL AND SURGICAL PROCEDURES 2022-10-23 05:01:00 Doctor Unassigned, [facility] FREE T4 2022-09-14 16:20:00 Neymar Mccormack [facility] THYROID STIMULATING HORMONE 2022-09-14 16:20:00 Neymar Mccormack [facility] COMP. METABOLIC PANEL (79319) 2022-09-14 16:20:00 Neymar Mccormack [facility] LIPID PANEL (11375)(TOTAL CHOLESTEROL, TRIGLYCERIDES, HDL) 2022-09-14 16:20:00 Neymar Mccormack [facility] IRON PANEL 2022-09-14 16:20:00 Neymar Mccormack [facility] CBC WITH DIFF 2022-09-14 16:20:00 Neymar Mccormack [facility] GLYCOSYLATED HEMOGLOBIN (A1C) 2022-09-14 16:20:00 Neymar Mccormack [facility] URINALYSIS 2022-09-14 16:20:00 Neymar Mccormack [facility] HCV ANTIBODY 2022-09-14 16:20:00 Donavon Mccormackssica [facility] VITAMIN D, 25-[place] 2022-09-14 16:20:00 [facility] FLU VACC ([id number]), 6 MO-64 YRS, .5ML, IM, QUAD (FLUCELVAX) 2022-09-12 15:41:01 Nicol Jordan [facility] PATIENT FINANCIAL POLICY 2022-09-12 15:10:30 Doctor Unassigned, [facility] CONSENT FOR CONTRACEPTION 2021-09-07 05:01:00 Doctor Unassigned, [facility] POCT TEST 2021-09-07 00:00:00 Reema Leal [facility] Encounters Start Date/Time End Date/Time Encounter Type Admission Type Attending Clinicians Care Facility Care Department Encounter ID Source 2021-03-27 07:46:23 Emergency [facility] [id number] [facility] 2023-09-13 13:45:00 2023-09-13 13:45:00 Outpatient MADDY BAER MARISOL [facility] [id number] [facility] 2023-06-14 11:30:00 2023-06-14 11:30:00 Outpatient MADDY BAER-LAMINE S, MADDY [facility] [id number] [facility] 2023-05-24 14:00:00 2023-05-24 14:00:00 Outpatient R NEYMAR MCCORMACK [facility] [id number] [facility] 2023-05-07 12:30:00 2023-05-07 12:30:00 Outpatient R NEYMAR MCCORMACK [facility] [id number] [facility] 2023-04-15 11:30:00 2023-04-15 11:51:17 [facility] [id number] [facility] 2023-04-15 11:30:00 2023-04-15 11:51:17 Office Visit Neymar Mccormack [facility] 1.2.840.114 350.1.13.10 4.2.7.2.686 [id number] [facility] 2023-04-05 00:00:00 2023-04-05 00:00:00 Patient Secure Msg Doctor Unassigned, [facility] 1.2.840.114 350.1.13.10 4.2.7.2.686 [id number] [facility] 2023-04-05 00:00:00 2023-04-05 00:00:00 Telephone Sherri mathias Maddy [facility] 1.2.840.114 350.1.13.10 4.2.7.2.686 [id number] 134 [id number] [facility] 2023-03-29 00:00:00 2023-03-29 00:00:00 Patient Secure Msg Doctor Unassigned, [facility] 1.2.840.114 350.1.13.10 4.2.7.2.686 [id number] [facility] 2023-03-29 00:00:00 2023-03-29 00:00:00 Telephone Maddy Nice [facility] 1.2.840.114 350.1.13.10 4.2.7.2.686 [id number] [facility] 2023-01-22 15:00:00 2023-01-22 15:00:00 Outpatient Cynthia MCCORMACKNEYMAR [facility] [id number] [facility] 2023-01-22 13:30:00 2023-01-22 13:30:00 Outpatient R EASTONNEYMAR [facility] [id number] [facility] 2022-11-22 11:30:00 2022-11-22 11:30:00 Outpatient R MCCORMACKNEYMAR [facility] [id number] [facility] 2022-11-19 10:00:00 2022-11-19 10:00:00 Outpatient R NEYMAR MCCORMACK [facility] [id number] [facility] 2022-11-05 11:00:00 2022-11-05 11:00:00 Outpatient R NEYMAR MCCORMACK [facility] [id number] [facility] 2022-10-23 10:30:00 2022-10-23 10:30:00 Office Visit Maddy Nice [facility] 1..840.114 350.1.13.10 4.2.7.2.686 [id number] [facility] 2022-10-23 10:30:00 2022-10-23 10:20:10 Outpatient R ELLIOTT NICESOL ELLIOTT NICESOL [facility] [id number] [facility] 2022-10-23 00:00:00 2022-10-23 00:00:00 Orders Only Doctor Unassigned, [facility] 1..840.114 350.1.13.10 4.2.7.2.686 [id number] [facility] 2022-09-28 11:00:00 2022-09-28 11:00:00 Outpatient R NEYMAR MCCORMACK [facility] [id number] [facility] 2022-09-27 11:30:00 2022-09-27 11:30:00 Outpatient R NEYMAR MCCORMACK [facility] [id number] [facility] 2022-09-17 00:00:00 2022-09-17 00:00:00 Patient Secure Msg Doctor Unassigned, [facility] 1.840.114 350.1.13.10 4.2.7.2.686 [id number] [facility] 2022-09-15 00:00:00 2022-09-15 00:00:00 Telephone Neymar Mccormack [facility] 1..114 350.1.13.10 4.2.7.2.686 [id number] [facility] 2022-09-14 10:30:00 2022-09-14 11:11:15 Outpatient R NEYMAR MCCORMACK [facility] [id number] [facility] 2022-09-14 10:30:00 2022-09-14 11:11:15 Office Visit Neymar Mccormack [facility] 1.840.114 350.1.13.10 4.2.7.2.686 [id number] [facility] 2022-09-14 10:15:00 2022-09-14 10:30:00 Candy Cooker Helper Visit 2, Adc Lab Donavon Mccormackssica [facility] 1.840.114 350.1.13.10 4.2.7.2.686 [id number] [facility] 2022-09-14 00:00:00 2022-09-14 00:00:00 Telephone Neymar Mccormack [facility] 1..840.114 350.1.13.10 4.2.7.2.686 [id number] [facility] 2022-09-12 10:15:00 2022-09-12 10:53:57 Outpatient NICOL ACUÑA [facility] [id number] [facility] 2022-09-12 10:15:00 2022-09-12 10:53:57 Office Visit Nikki Nicol [facility] 1..840.114 350.1.13.10 4.2.7.2.686 [id number] 134 [id number] [facility] 2022-09-12 00:00:00 2022-09-12 00:00:00 Orders Only Doctor Unassigned, [facility] 1..840.114 350.1.13.10 4.2.7.2.686 [id number] [facility] 2022-02-22 14:00:00 2022-02-22 14:00:00 Outpatient NICOL ACUÑA [facility] [id number] [facility] 2021-09-07 13:00:00 2021-09-07 13:47:46 Outpatient REEMA ORTEGA [facility] [id number] [facility] 2021-09-07 13:00:00 2021-09-07 13:30:00 Office Visit Reema Leal [facility] 1..840.114 350.1.13.10 4.2.7.2.686 [id number] 134 [id number] [facility] 2021-09-07 13:00:00 2021-09-07 13:00:00 Outpatient REEMA ORTEGA [facility] [id number] [facility] 2021-09-07 13:00:00 2021-09-07 13:00:00 Outpatient R REEMA LEAL [facility] [id number] [facility] 2021-09-07 00:00:00 2021-09-07 00:00:00 Orders Only Doctor Unassigned, [facility] 1.2.840.114 350.1.13.10 4.2.7.2.686 [id number] [facility] 2021-08-22 16:00:00 2021-08-22 16:14:41 Office Visit Pandaashleykenzie Nicol [facility] 1.2.840.114 350.1.13.10 4.2.7.2.686 [id number] 134 [id number] [facility] 2021-08-22 16:00:00 2021-08-22 16:14:41 [facility] [id number] [facility] 2021-08-22 16:00:00 2021-08-22 16:00:00 Outpatient R [facility]KKI [facility] [id number] [facility] 2021-08-18 00:00:00 2021-08-18 00:00:00 Telephone [facility]ki [facility] 1.2.840.114 350.1.13.10 4.2.7.2.686 [id number] [facility] 2021-06-08 15:30:00 2021-06-08 15:30:00 Outpatient R [facility] [id number] [facility] 2021-06-08 09:00:00 2021-06-08 09:00:00 Outpatient R [facility] [id number] [facility] 2021-06-05 14:00:00 2021-06-05 14:00:00 Outpatient R [facility] [id number] [facility] 2021-05-31 14:00:00 2021-05-31 14:00:00 Outpatient R [facility] [id number] [facility] 2021-05-12 19:18:00 2021-05-12 20:38:00 Emergency X EDGAR SARAVIA [facility] [id number] [facility] 2021-05-12 19:18:00 2021-05-12 20:38:00 Emergency Edgar Saravia [facility] 1.2.840.114 350.1.13.10 4.2.7.2.686 [id number] [facility] 2021-05-01 00:00:00 2021-05-01 00:00:00 Telephone Nikki Nicol [facility] 1.2.840.114 350.1.13.10 4.2.7.2.686 [id number] [facility] 2021-04-18 15:03:00 2021-04-18 16:00:00 Emergency X EDGAR SARAVIA [facility] ERT [id number] [facility] 2021-04-18 15:03:00 2021-04-18 16:00:00 Emergency Edgar Saravia [facility] 1.2.840.114 350.1.13.10 4.2.7.2.686 [id number] [facility] 2021-03-08 13:49:46 2021-03-08 14:34:01 Nurse Visit Nurse, [facility] Reema Leal [facility] Professio [facility]al [facility] 1.2.840.114 350.1.13.10 4.2.7.2.686 [id number] 134 [id number] [facility] 2021-03-08 14:00:00 2021-03-08 14:00:00 Outpatient R [facility] [id number] [facility] 2021-03-08 00:00:00 2021-03-08 00:00:00 Orders Only Doctor Unassigned, [facility] 1.2840.114 350.1.13.10 4.2.7.2.686 [id number] [facility] 2021-03-06 10:30:00 2021-03-06 10:30:00 Outpatient R [facility] [id number] [facility] 2021-02-20 10:11:47 2021-02-20 11:00:27 Office Visit Nicol Jordan [facility] 1.2840.114 350.1.13.10 4.2.7.2.686 [id number] [facility] 2021-02-20 09:30:00 2021-02-20 09:30:00 Outpatient R NIKKI [facility] [id number] [facility] 2021-02-20 00:00:00 2021-02-20 00:00:00 Orders Only Doctor Unassigned, [facility] 1.2840.114 350.1.13.10 4.2.7.2.686 [id number] [facility] 2020-12-15 14:00:00 2020-12-15 14:00:00 Outpatient R [facility] [id number] [facility] 2020-12-06 10:18:00 2020-12-06 11:48:00 Emergency Adela Tay [facility] 1.2840.114 350.1.13.10 4.2.7.2.686 [id number] [facility] 2020-12-06 00:00:00 2020-12-06 00:00:00 Orders Only Doctor Unassigned, [facility] 1.2840.114 350.1.13.10 4.2.7.2.686 [id number] [facility] 2020-10-05 13:20:00 2020-10-05 13:20:34 Outpatient SANDRO REYES [facility] [id number] [facility] 2020-10-05 12:20:00 2020-10-05 12:20:00 Outpatient Cynthia SANDRO COTE [facility] [id number] [facility] 2020-10-05 11:10:00 2020-10-05 11:10:00 Outpatient JUAN AMNUEL RODIRGUEZ [facility] [id number] [facility] 2020-09-15 14:00:00 2020-09-15 14:34:04 Outpatient JUAN MANUEL RODRIGUEZ [facility] [id number] [facility] 2020-09-15 13:56:24 2020-09-15 14:34:04 Nurse Visit Nurse, [facility] 1.2840.114 350.1.13.10 4.2.7.2.686 [id number] 2020-09-15 13:56:24 2020-09-15 14:34:04 Nurse Visit Nurse, [facility] Juan Manuel Lama [facility] 1.2840.114 350.1.13.10 4.2.7.2.686 [id number] 134 [id number] [facility] 2020-09-15 00:00:00 2020-09-15 00:00:00 Orders Only Doctor Unassigned, [facility] 1.2840.114 350.1.13.10 4.2.7.2.686 [id number] 2020-09-15 00:00:00 2020-09-15 00:00:00 Orders Only Doctor Unassigned, [facility] 1.2840.114 350.1.13.10 4.2.7.2.686 [id number] [facility] 2020-08-23 10:00:00 2020-08-23 10:00:00 Outpatient R REEMA LEAL [facility] [id number] [facility] 2020-05-25 14:03:52 2020-05-25 14:18:52 Nurse Visit Nurse, [facility] Profess[facility] nal Building 1.84.114 350.1.13.10 4.2.7.2.686 [id number] 2020-05-25 14:03:52 2020-05-25 14:18:52 Nurse Visit Nurse, [facility] 1..114 350.1.13.10 4.2.7.2.686 [id number] [facility] 2020-05-25 14:00:00 2020-05-25 14:00:00 Outpatient R [facility] [id number] [facility] 2020-05-18 10:00:00 2020-05-18 10:00:00 Outpatient R [facility] [id number] [facility] 2020-03-10 11:15:00 2020-03-10 11:15:00 Outpatient VALERIE CALDERON [facility] [id number] [facility] 2020-03-09 13:30:00 2020-03-09 13:30:00 Outpatient R REEMA LEAL [facility] [id number] [facility] 2020-02-18 14:45:48 2020-02-18 15:53:03 Office Visit Nicol Jordan [facility] 1.84.114 350.1.13.10 4.2.7.2.686 [id number] 134 [id number] [facility] 2020-02-18 14:45:48 2020-02-18 15:53:03 [facility] 1.284.114 350.1.13.10 4.2.7.2.686 [id number] 134 [id number] 2020-02-18 14:45:00 2020-02-18 14:45:00 Outpatient R NICOL JORDAN [facility] [id number] [facility] 2020-02-16 09:00:00 2020-02-16 09:00:00 Outpatient R KAMCAROLDESIRAEFELIPE [facility] [id number] [facility] 2020-02-10 10:30:00 2020-02-10 10:30:00 Outpatient R NICOL JORDAN [facility] [id number] [facility] 2020-02-08 11:00:00 2020-02-08 11:00:00 [facility] [id number] [facility] 2019-11-10 14:24:53 2019-11-10 14:50:31 Nurse Visit Nurse, [facility] Reema Leal [facility] 1..840.114 350.1.13.10 4.2.7.2.686 [id number] [facility] 2019-11-10 14:30:00 2019-11-10 14:30:00 Outpatient R [facility] [id number] [facility] 2019-11-10 00:00:00 2019-11-10 00:00:00 Orders Only Doctor Unassigned, [facility] ..840.114 350.1.13.10 4.2.7.2.686 [id number] [facility] 2019-11-03 16:00:00 2019-11-03 16:00:00 Outpatient R ABBY MONTAGUE [facility] [id number] [facility] 2019-10-06 10:30:00 2019-10-06 10:30:00 Outpatient R [facility] [id number] [facility] 2019-07-08 10:30:00 2019-07-08 11:08:23 Outpatient R LEAL, [facility] [id number] [facility] 2019-07-08 10:30:02 2019-07-08 10:45:02 Nurse Visit Nurse, [facility] Reema Leal [facility] 1.2.840.114 350.1.13.10 4.2.7.2.686 [id number] [facility] 2019-07-08 00:00:00 2019-07-08 00:00:00 Orders Only Doctor Unassigned, [facility] 1.2.840.114 350.1.13.10 4.2.7.2.686 [id number] [facility] 2019-04-06 10:30:00 2019-04-06 09:40:25 Outpatient Cynthia MEL REEMA [facility] [id number] [facility] 2019-01-06 10:32:05 2019-01-06 11:08:52 Office Visit Nicol Jordan [facility] 1.2.840.114 350.1.13.10 4.2.7.2.686 [id number] [facility] 2019-01-06 10:00:00 2019-01-06 11:08:52 Outpatient Cynthia NIKKI [facility] [id number] [facility] 2019-01-06 00:00:00 2019-01-06 00:00:00 Orders Only Doctor Unassigned, [facility] 1.2.840.114 350.1.13.10 4.2.7.2.686 [id number] [facility] 2018-10-06 10:00:00 2018-10-06 09:52:24 Outpatient Cynthia REEMA LEAL [facility] [id number] [facility] Results Test Description Test Time Test Comments Results Result Co mments Source [id number] 18:17:00* Test Item Value Reference Range Interpretation Comme nts POCT PREG (test code = 1605) Negative On board controls acceptable with C Line (test code = 3574) Yes POCT PREG LOT # (test code = 3575) POCT PREG TEST DATE ( test code = 3576) [facility]
[2023-10-02] MEDS ORDERED: LIDOCAINE 1% MPF 5 ML VIAL ONE (22:14)
[2023-10-03] MEDS ORDERED: LIDOCAINE 1% 20 ML MDV ONE (01:09)
--- NOTE | 2023-10-03 01:24 | ER ---
Nurse's Notes [facility] Name: Donnell Marie Age: 28 yrs Sex: Female : 1995 Arrival Date: 10/02/2023 Time: 21:51 Bed 13 Private MD: Diagnosis: Left foot foreign body, glass shard in the left foot Presentation: 10/01 22:08 Chief complaint: EMS states: reports small glass at her left foot. ha1 22:08 Coronavirus screen: Vaccine status: Patient reports receiving the 2nd dose of the covid ha1 vaccine. [employer]. Ebola Screen: No symptoms or risks identified at this time. Initial Sepsis Screen: Does the patient meet any 2 criteria? No. Patient's initial sepsis screen is negative. Does the patient have a suspected source of infection? No. Patient's initial sepsis screen is negative. Risk Assessment: Do you want to hurt yourself or someone else? Patient reports no desire to harm self or others. Onset of symptoms was October 02, 2023. 22:08 Method Of Arrival: EMS: [facility] 22:08 Acuity: ENRIQUETA 4 ha1 Triage Assessment: 22:08 General: Appears comfortable, Behavior is calm, cooperative. Pain: Complains of pain in ha1 left foot Pain does not radiate. Pain currently is 5 out of 10 on a pain scale. Neuro: Level of Consciousness is awake, alert, obeys commands, Oriented to person, place, time, situation. Cardiovascular: Patient's skin is warm and dry. Respiratory: Airway is patent Respiratory effort is even, unlabored, Respiratory pattern is regular, symmetrical. Derm: Skin is pink, warm \T\ dry. Injury Description: Foreign body is located left foot is glass. Historical: - Allergies: 22:12 No Known Allergies; ha1 - PMHx: 22:12 None; ha1 - Immunization history:: Adult Immunizations up to date. - Infectious Disease History:: Denies. - Social history:: Smoking status: Patient denies any tobacco usage or history of. - Family history:: not pertinent. Screenin:14 [facility] ED Fall Risk Assessment (Adult) History of falling in the last 3 months, ha1 including since admission No falls in past 3 months (0 pts) Confusion or Disorientation No (0 pts) Intoxicated or Sedated No (0 pts) Impaired Gait No (0 pts) Mobility Assist Device Used No (0 pt) Altered Elimination No (0 pt) Score/Fall Risk Level 0 - 2 = Low Risk Oriented to surroundings, Maintained a safe environment, Hourly rounding (assess needs \T\ fall precautionary measures) done. Abuse screen: Denies threats or abuse. Denies injuries from another. Nutritional screening: No deficits noted. Tuberculosis screening: No symptoms or risk factors identified. Assessment: 10/02 01:32 Reassessment: Patient appears in no apparent distress at this time. Patient and/or jb4 family updated on plan of care and expected duration. Pain level reassessed. Patient is alert, oriented x 3, equal unlabored respirations, skin warm/dry/pink. Vital Signs: 10/01 22:08 BP 127 / 79; Pulse 89; Resp 17 S; Temp 97.9(T); Pulse Ox 100% on R/A; Weight 95.25 kg; ha1 [place] Coma Score: 10/02 03:18 Eye Response: spontaneous(4). Motor Response: obeys commands(6). Verbal Response: sp4 oriented(5). Total: 15. ED Course: 10/01 22:08 Patient arrived in ED. jb4 22:08 Patient has correct armband on for positive identification. Placed in gown. Bed in low ha1 position. Call light in reach. Side rails up X 1. 22:11 Nico Bruno MD is Attending Physician. sp4 22:12 Triage completed. ha1 22:12 Ravindra Mortensen, NIVIA is Primary Nurse. rv 10/02 00:32 Foot Left 2 View XRAY In Process Unspecified. EDMS 01:32 Provided Education on: Discharge instructions.. jb4 01:32 No provider procedures requiring assistance completed. Patient did not have IV access jb4 during this emergency room visit. Administered Medications: 01:32 CANCELLED (Pt left prior to receiving medications.): acetaminophen-codeine(300 mg-30 jb4 mg) 2 tabs PO once; RASS on ADMIN: Combtv4, Very Agttd3, Agttd2, Rstlss1, AlertClm0, Drwsy-1, Lt Sdtn-2, Mod Sdtn-3, Dp Sdtn-4, UnArsble-5 01:32 CANCELLED (Pt left prior to receiving medications.): mg PO once jb4 Medication: 01:32 VIS not applicable for this client. jb4 Outcome: 01:24 Discharge ordered by . sp4 01:32 Discharged to home ambulatory, with family, jb4 01:32 Condition: stable 01:32 Discharge instructions given to patient, Instructed on discharge instructions, follow up and referral plans. Demonstrated understanding of instructions, follow-up care, 01:33 Patient left the ED. jb4 Signatures: Dispatcher [employer] EDManuel Galan RN RN jb4 Ravindra Mortensen RN RN Melina Lopez RN RN ha1 Nico Bruno MD MD sp4
--- NOTE | 2023-10-03 01:24 | EDPHYS ---
Physician Documentation [facility] Name: Donnell Marie Age: 28 yrs Sex: Female : 1995 Arrival Date: 10/02/2023 Time: 21:51 Bed 13 Private MD: ED Physician Nico Bruno HPI: 10/01 22:11 This 28 yrs old Black Female presents to ER via Unassigned with complaints of left foot sp4 glass shard . 10/02 03:18 28-year-old female presents with acute left foot pain secondary to stepping on a glass sp4 shard. There is a small glass shard lodged in the left plantar lateral foot just next to the left fifth metatarsophalangeal joint.. Historical: - Allergies: 10/01 22:12 No Known Allergies; ha1 - PMHx: 22:12 None; ha1 - Immunization history:: Adult Immunizations up to date. - Infectious Disease History:: Denies. - Social history:: Smoking status: Patient denies any tobacco usage or history of. - Family history:: not pertinent. ROS: 10/02 03:18 Constitutional: Negative for fever, chills, and weight loss, positive left foot pain sp4 left foot, with glass shard lodged in the skin All other systems are negative, Exam: 03:18 Constitutional: This is a well developed, well nourished patient who is awake, alert, sp4 and in no acute distress. Head/Face: Normocephalic, atraumatic. Eyes: Pupils equal round and reactive to light, extra-ocular motions intact. Lids and lashes normal. Conjunctiva and sclera are not injected. Cornea within normal limits. Periorbital areas with no swelling, redness, or edema. ENT: Nares patent. No nasal discharge, no septal abnormalities noted. Tympanic membranes are normal and external auditory canals are clear. Oropharynx with no redness, swelling, or masses, exudates, or evidence of obstruction, uvula midline. Mucous membranes moist. Neck: Trachea midline, no thyromegaly or masses palpated, and no cervical lymphadenopathy. Supple, full range of motion without nuchal rigidity, or vertebral point tenderness. Chest/axilla: Normal chest wall appearance and motion. Nontender with no deformity. No lesions are appreciated. Cardiovascular: Regular rate and rhythm with a normal S1 and S2. No gallops, murmurs, or rubs. Normal PMI, no JVD. No pulse deficits. Respiratory: Lungs have equal breath sounds bilaterally, clear to auscultation and percussion. No rales, rhonchi or wheezes noted. No increased work of breathing, no retractions or nasal flaring. Abdomen/GI: Soft, with normal bowel sounds. No distension or tympany. No guarding or rebound. No evidence of tenderness throughout. Back: No spinal tenderness. No costovertebral tenderness. Skin: Warm, dry with normal turgor. Normal color with no rashes, no lesions, and no evidence of cellulitis. MS/ Extremity: Pulses equal, no cyanosis. Neurovascular intact. Full, normal range of motion. There is a small puncture wound left lateral plantar foot, right next to left fifth metatarsal phalangeal joint. Neuro: Awake and alert, GCS 15, oriented to person, place, time, and situation. Cranial nerves II-XII grossly intact. Motor strength 5/5 in all extremities. Sensory grossly intact. Psych: Awake, alert, with orientation to person, place and time. Behavior, mood, and affect are within normal limits Vital Signs: 10/01 22:08 BP 127 / 79; Pulse 89; Resp 17 S; Temp 97.9(T); Pulse Ox 100% on R/A; Weight 95.25 kg; ha1 [place] Coma Score: 10/02 03:18 Eye Response: spontaneous(4). Motor Response: obeys commands(6). Verbal Response: sp4 oriented(5). Total: 15. Procedures: 03:18 Foreign Body Removal: Small glass shard, from the left Atleft foot -left plantar sp4 lateral location Left metatarsophalangeal joint fifth, by using a hemostat, incising to remove, using lidocaine 1% without epinephrine to anesthesize the area, Dressinx4s were used to dress the wound, dandre was used to dress the wound, The patient tolerated the removal well, Small glass shard removed after her local anesthesia with 1% lidocaine no epi . MDM: 10/01 22:11 Patient medically screened. sp4 10/02 03:22 Differential Diagnosis Left foot foreign body. Data reviewed: vital signs, nurses sp4 notes, EMS record, radiologic studies, plain films. ED course: EXAM DESCRIPTION: Foot Left 2 View 10/03/2023 12:40 AM CDT CLINICAL HISTORY: 28 years, Female, PAIN COMPARISON: None FINDINGS: 2 X-ray views of the left foot (frontal and lateral views) were performed. Bones: No areas of acute bony injuries were demonstrated. Soft tissues: No significant soft tissue swelling. Joints: No gross articular abnormality is identified. Others: There are no gross intraosseous lesions. No periosteal reaction were seen. There is is superficial plantar radiodensity at the level of the base proximal phalanx fifth finger measuring 2.7 mm. IMPRESSION: No acute bony injuries were demonstrated. Superficial plantar radiodensity at the level of the base proximal phalanx fifth finger measuring 2.7 mm perhaps suggesting foreign body. . 10/02 00:10 Order name: Foot Left 2 View XRAY kl 10/01 22:11 Order name: Dressing - Wound; Complete Time: 23:00 sp4 10/01 22:11 Order name: Gloves, Sterile; Complete Time: 23:00 sp4 10/01 22:11 Order name: Setup Suture Tray; Complete Time: 23:00 sp4 Administered Medications: 01:32 CANCELLED (Pt left prior to receiving medications.): acetaminophen-codeine(300 mg-30 jb4 mg) 2 tabs PO once; RASS on ADMIN: Combtv4, Very Agttd3, Agttd2, Rstlss1, AlertClm0, Drwsy-1, Lt Sdtn-2, Mod Sdtn-3, Dp Sdtn-4, UnArsble-5 01:32 CANCELLED (Pt left prior to receiving medications.): [id number] mg PO once jb4 Disposition Summary: 10/03/23 01:24 Discharge Ordered Notes: Location: Home sp4 Problem: new sp4 Symptoms: have improved sp4 Condition: Stable sp4 Diagnosis - Left foot foreign body, glass shard in the left foot sp4 Followup: sp4 - With: Private Physician - When: 7 - 10 days - Reason: Recheck today's complaints Discharge Instructions: - Discharge Summary Sheet sp4 - Foreign Body sp4 Forms: - Patient Portal Instructions sp4 Prescriptions: - Ibuprofen 800 mg Oral Tablet - take 1 tablet ORAL route every 8 hours As needed take with food; 30 tablet; sp4 Refills: 0, Product Selection Permitted - Tramadol 50 mg Oral tablet - take 1 tablet ORAL route every 8 hours as needed; 20 tablet; Refills: 0, sp4 Product Selection Permitted Signatures: Dispatcher [employer] EDMelina Samuel RN RN ha1 Nico Bruno MD MD sp4 Manuel Singh RN jb4 Corrections: (The following items were deleted from the chart) 00:11 00:11 Foot Left 2 View+[id number].[email or web address].BRZ ordered. EDMS EDMS 01:32 01:23 Acetaminophen-Codeine PO (300 mg-30 mg) 2 tabs PO once; RASS on ADMIN: Combtv4, jb4 Very Agttd3, Agttd2, Rstlss1, AlertClm0, Drwsy-1, Lt Sdtn-2, Mod Sdtn-3, Dp Sdtn-4, UnArsble-5 ordered. sp4 01:32 01:23 Ibuprofen PO 800 mg PO once ordered. sp4 jb4
[2023-10-03 02:11] VITALS: BP 127/79; TEMP 97.9; O2SAT 100
--- NOTE | 2023-10-03 13:25 | RAD REPORT ---
EXAM DESCRIPTION: RAD - Foot Left 2 View - 10/03/2023 12:30 am CLINICAL HISTORY: 28 years, Female, PAIN COMPARISON: None FINDINGS: 2 X-ray views of the left foot (frontal and lateral views) were performed. Bones: No areas of acute bony injuries were demonstrated. Soft tissues: No significant soft tissue swelling. Joints: No gross articular abnormality is identified. Others: There are no gross intraosseous lesions. No periosteal reaction were seen. There is is curran perficial plantar radiodensity at the level of the base proximal phalanx fifth finger measuring 2.7 m m. IMPRESSION: No acute bony injuries were demonstrated. Superficial plantar radiodensity at the level of the base proximal phalanx fifth finger measuring 2.7 mm perhaps suggesting foreign body. Electronically signed by: Arnie Bone MD 10/03/2023 12:41 AM CDT Due to temporary technical issues with the PACS/Fluency reporting system, reports are being signed by the in house radiologist without review as a courtesy to ensure prompt reporting. The interpreting R adiologist is fully responsible for the content of the report.
== END 2023-10-03 01:33 | disposition home or self-care (01) ==
LOC: ER 21:51
PROC: 0HCNXZZ Extirpation of Matter from Left Foot Skin, External Approach (ICD-10-PCS; principal; 2023-10-03)
DX: S90.852A Superficial foreign body, left foot, initial encounter (principal)
CPT/HCPCS: 73620; 99283; 10120; J2001 ×2